=== PATIENT | female | born 1975 | race Caucasian/White ===

== ENCOUNTER 2025-02-14 13:12 | Outpatient (RCR) | payer MEDICARE, MEDICAID, SELFPAY | END 2025-03-22 14:42 | disposition home or self-care (01) | LOC: HO.PT 13:12 | PROVIDERS: PCP Internal Medicine; Visit Provider Student in an Organized Health Care Education/Training Program | DX: N39.41 Urge incontinence (principal); N32.81 Overactive bladder; R15.9 Full incontinence of feces | CPT/HCPCS: 97110; 97112; 97140; 97161 ==